=== PATIENT | female | born 2000 | race Hispanic/Latino ===

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

== ENCOUNTER 2021-03-20 18:49 | Emergency (ER) | payer OTHER ==
[2021-03-20] MEDS ORDERED: Ibuprofen 200 MG TAB ONE (19:56)
[2021-03-20] MEDS ORDERED: Acetaminophen 500 MG TAB ONE (19:56)
== END 2021-03-20 20:00 | disposition home or self-care (01) ==
LOC: ERS 18:49
DX: R51.9 Headache, unspecified (principal)
CPT/HCPCS: 99283